=== PATIENT | male | born 1970 | race Hispanic/Latino ===

== ENCOUNTER 2019-07-17 11:59 | Emergency (ER) | payer SELFPAY ==
--- NOTE | 2019-07-17 13:38 | Anesthesia Consultation ---
Anesthesia Consult and Med Hx Date of service: 07/17/19 - Airway Anesthetic Teeth Evaluation: Poor, Chipped (severely decayed) ROM Head & Neck: Adequate Mental/Hyoid Distance: Adequate Mallampati Class: Class II Intubation Access Assessment: Good - Pulmonary Exam CTA: Yes - Cardiac Exam Cardiac Exam: RRR - Pre-Operative Health Status ASA Pre-Surgery Classification: ASA3 Proposed Anesthetic Plan: General (morbid obesity )
--- NOTE | 2019-07-17 13:38 | Anesthesia Day of Surgery ---
Anesthesia Day of Surgery - Day of Surgery Patient Examined: Yes Patient H&P Reviewed: Yes Patient is NPO: Yes
[2019-07-17] MEDS ORDERED: LACTATED RINGERS 1,000 ML ONE (13:53)
--- NOTE | 2019-07-17 16:21 | Emergency Department Report ---
ED Abdominal Pain HPI - General Chief Complaint: Back Pain/Injury Stated Complaint: KIDNEY STONE REMOVAL PER DOCTOR Time Seen by Provider: 07/17/19 15:32 Source: patient Mode of arrival: Ambulatory Limitations: No Limitations - History of Present Illness Initial Comments: This is a 48-year-old male nontoxic, well nourished in appearance, no acute signs of distress presents to the ED with c/o of flank pain x6 months. Patient was sent by Cecily Cook to go to the emergency department for a elective procedure of lithotripsy. Patient stated was diagnosed with a 6 mm kidney stone that is not obstructing and is supposed to have a elective procedure but insurance did not cover the surgery so he was sent to emergency room. Patient denies any nausea vomiting. Patient denies chest pain, short of breath, fever, chills, headache, stiff neck, numbness or tingling. Patient denies any diarrhea or constipation. Patient denies any recent travels. Patient stated allergies to codeine and sulfa but denies any drug allergies to morphine. Patient stated he is currently on ciprofloxacin that started 2 days ago for pneumonia. MD Complaint: flank pain -: month(s) Location: L flank Radiation: none Migration to: no migration Severity: mild Severity scale (0 -10): 8 Quality: aching Consistency: constant Improves With: nothing Worsens With: nothing Associated Symptoms: denies other symptoms. denies: nausea, vomiting, diarrhea, fever, chills, constipation, dysuria, hematemesis, hematochezia, melena, hematuria, anorexia, syncope - Related Data Previous Rx's Medication Instructions Recorded Last Taken Type Acetaminophen/Codeine [Tylenol 1 tab PO Q6H PRN #12 tab 07/17/19 Unknown Rx /Codeine # 3 tab] Allergies Allergy/AdvReac Type Severity Reaction Status Date / Time codeine Allergy Hives Verified 07/17/19 12:06 Sulfa (Sulfonamide Allergy Hives Verified 07/17/19 12:05 Antibiotics) ED Review of Systems ROS: Stated complaint: KIDNEY STONE REMOVAL PER DOCTOR Other details as noted in HPI Constitutional: denies: chills, fever Eyes: denies: eye pain, eye discharge, vision change ENT: denies: ear pain, throat pain Respiratory: denies: cough, shortness of breath, wheezing Cardiovascular: denies: chest pain, palpitations Endocrine: no symptoms reported Gastrointestinal: denies: abdominal pain, nausea, vomiting, diarrhea Genitourinary: denies: urgency, dysuria Musculoskeletal: denies: back pain, joint swelling, arthralgia Skin: denies: rash, lesions Neurological: denies: headache, weakness, paresthesias Psychiatric: denies: anxiety, depression Hematological/Lymphatic: denies: easy bleeding, easy bruising ED Past Medical Hx - Past Medical History Previous Medical History?: No - Surgical History Past Surgical History?: Yes Additional Surgical History: Back surgery. knee surgery - Medications Home Medications: Home Medications Medication Instructions Recorded Confirmed Last Taken Type Acetaminophen/Codeine [Tylenol 1 tab PO Q6H PRN #12 tab 07/17/19 Unknown Rx /Codeine # 3 tab] ED Physical Exam - General Limitations: No Limitations General appearance: alert, in no apparent distress - Head Head exam: Present: atraumatic, normocephalic - Neck Neck exam: Present: normal inspection, full ROM. Absent: tenderness, meningismus, lymphadenopathy - Respiratory Respiratory exam: Present: normal lung sounds bilaterally. Absent: respiratory distress, wheezes, rales, rhonchi, stridor, chest wall tenderness, accessory muscle use, decreased breath sounds, prolonged expiratory - Cardiovascular Cardiovascular Exam: Present: regular rate, normal rhythm, normal heart sounds. Absent: bradycardia, tachycardia, irregular rhythm, systolic murmur, diastolic murmur, rubs, gallop - GI/Abdominal GI/Abdominal exam: Present: soft, normal bowel sounds. Absent: distended, tenderness, guarding, rebound, diminished bowel sounds - Extremities Exam Extremities exam: Present: normal inspection, full ROM - Back Exam Back exam: Present: normal inspection, full ROM. Absent: tenderness, CVA tenderness (R), CVA tenderness (L), muscle spasm, paraspinal tenderness, vertebral tenderness, rash noted - Neurological Exam Neurological exam: Present: alert, oriented X3, normal gait - Psychiatric Psychiatric exam: Present: normal affect, normal mood - Skin Skin exam: Present: warm, dry, intact, normal color. Absent: rash ED Course Vital Signs 07/17/19 07/17/19 13:15 17:34 Temperature 98.4 F 98.2 F Pulse Rate 81 87 Respiratory 20 18 Rate Blood Pressure 151/93 Blood Pressure 147/69 [Left] O2 Sat by Pulse 97 99 Oximetry - Reevaluation(s) Reevaluation #1: 07/17/19 16:51 Patient is speaking in full sentences with no signs of distress noted. - Consultations Consultation #1: 07/17/19 16:53 Patient has been consulted with Jyotsna Millard about patient history, physical exam, and agrees to ED plan of care for labs and UA. If within normal patient can be discharged. Consultation #2: 07/17/19 16:54 Dr. Rueda was consulted and stated to discharge patient and he will perform the case in another hospital. ED Medical Decision Making - Lab Data Result diagrams: 07/17/19 16:52 07/17/19 16:52 - Medical Decision Making This is a 48-year-old male that presents with kidney stone that is nonobstructing and pneumonia. Patient stated he is currently taking ciprofloxacin for 2 days now for pneumonia that his doctor prescribed.. Patient is stable and was examined by me. Labs are unremarkable. UA obtained. CT of abdomen obtained and dictated by the radiologist. Patient is notified of the report with no questions noted by the patient. Vital signs are stable prior to discharge. Patient received medical treatment in the ED which patient stated symptoms has resovled and subsided. Was instructed note to operate any machiner y due to possible drowsiness and stated someone will drive the patient home. A by mouth challenge has been obtained and patient tolerated well with no nausea vomiting. Patient was also instructed to Follow-up with a urologist tomorrow as his urologist stated or if symptoms worsen and continue return to emergency room as soon as possible. At time of discharge, the patient does not seem toxic or ill in appearance. No acute signs of distress noted. Patient agrees to discharge treatment plan of care. No further questions noted by the patient. Critical care attestation.: If time is entered above; I have spent that time in minutes in the direct care of this critically ill patient, excluding procedure time. ED Disposition Clinical Impression: Kidney stone Disposition: DC-01 TO HOME OR SELFCARE Is pt being admited?: No Does the pt Need Aspirin: No Condition: Stable Instructions: Kidney Stones (ED), Acetaminophen/Codeine (By mouth) Additional Instructions: Follow-up with with your urologist tomorrow as he instructed or if symptoms worsen and continue return to emergency room as soon as possible. Do not operate any machinery while taking Tylenol with codeine as this may cause drowsiness. Prescriptions: Acetaminophen/Codeine [Tylenol /Codeine # 3 tab] 1 tab PO Q6H PRN #12 tab PRN Reason: Pain, Moderate (4-6) Referrals: PRIMARY CARE, [Primary Care Provider] - 3-5 Days CECILY RUEDA MD [Staff Physician] - 07/18/19 Forms: Work/School Release Form(ED)
[2019-07-17] MEDS ORDERED: MORPHINE 4 MG/1 ML INJ IV ONE (16:33)
[2019-07-17] MEDS ORDERED: MORPHINE 4 MG/1 ML INJ ONE (16:38)
[2019-07-17 17:11] LABS: Basophils % (Auto) 0.5 % (0.0-1.8); Eosinophils % (Auto) 0.8 % (0.0-4.3); Hematocrit 42.6 % (35.5-45.6); Hemoglobin 14.3 gm/dl (11.8-15.2); Lymphocytes # (Auto) 1.1 K/mm3 (1.2-5.4); Mean Corpuscular HGB Conc 34 % (32-34); Mean Corpuscular Volume 85 fl (84-94); Monocytes # (Auto) 0.5 K/mm3 (0.0-0.8); Monocytes % (Auto) 7.2 % (0.0-7.3); Platelet Count 204 K/mm3 (140-440); Red Cell Distribution Width 14.3 % (13.2-15.2)
[2019-07-17 17:12] LABS: Bilirubin,Urine NEG (Negative); Blood,Urine NEG (Negative); Color,Urine Yellow (Yellow); Mucus,Urine FEW /HPF; Protein,Urine <15 mg/dL mg/dL (Negative)
[2019-07-17 17:25] LABS: Alanine Aminotransferase 24 units/L (7-56); Albumin 3.7 g/dL (3.9-5); BUN/Creatinine Ratio 9; Blood Urea Nitrogen 7 mg/dL (9-20); Calcium 8.9 mg/dL (8.4-10.2); Hemolysis Index 12
[2019-07-17 18:15] VITALS: BP 151/93
[2019-07-17] MEDS ORDERED: HYDROmorphone 1 MG/1 ML INJ IV ONE (18:17)
[2019-07-17] MEDS ORDERED: HYDROmorphone 1 MG/1 ML INJ ONE (18:21)
--- NOTE | 2019-07-17 18:35 | Cat Scan Report ---
CT abdomen pelvis wo con INDICATION: MAIN: flank pain, patient going to the OR for kidney stone. TECHNIQUE: All CT scans at this location are performed using the following dose modulation technique: Automated exposure control. CONTRAST: None. COMPARISON: None available. CT ABDOMEN: Evaluation the lung bases demonstrates patchy infiltrate at the right middle lobe. The parenchymal organs are unremarkable in appearance. Negative for mass, fluid or inflammation. Ther e is no renal stone or obstruction. The gallbladder is mildly distended but demonstrates no adjacent inflammation. The bowel is not dilated or thickened. CT PELVIS: 7.5 cm calcification is inseparable from the distal left ureter which is not dilated. Nega tive for pelvic mass or fluid. IMPRESSION: 1. Right middle lobe pneumonia. 2. Suspect large nonobstructing stone distal left ureter. Signer Name: Godwin Antoine MD Signed: 07/17/2019 6:31 PM Workstation Name: [id number]
--- NOTE | 2019-07-18 03:17 | Consultation ---
HISTORY OF PRESENT ILLNESS: The patient is a gentleman we met last with a months of intermittent flank pain. He thought he passed the stone. He has a significant 6 mm stone in the ureter. He has been hurting on and off. It is now in the distal ureter. He had a little bit pneumonia. He is back in the Emergency Room with unremitting pain. We plan to take the stone out. We brought him in through the Emergency Room and then he went to preop. Then, he went back to the Emergency Room. There were some issues with [facility] in [facility]. I have been seeing the family at least 2-3 times. I saw them in preop. I just came from the Emergency Room and they are waiting to see an appeal with [employer] to say they have been denied treatment. The OR is ready. I have been ready since 1:00 to take care of the stone. He has been hurting for months. PAST MEDICAL HISTORY: He has his records, a history of kidney stone, previous pyelo, pneumonia, seizure, and bronchiolitis. ALLERGIES: CODEINE AND SULFA. FAMILY HISTORY: Noncontributory. REVIEW OF SYSTEMS: Pain. PHYSICAL EXAMINATION: GENERAL: On exam, he is having some pain. He is not vomiting at this point. ABDOMEN: Obese. Left flank pain. IMPRESSION: The patient needs the stone removed. I talked to him, his , and his mother, who is in a wheelchair, they have been back and forth from preop back to the Emergency Room and their cause is being made to Human. Otherwise, we may have to transfer him. JOB# [id number] BEA/CAROLANN
== END 2019-07-17 18:53 | disposition home or self-care (01) ==
LOC: ED 11:59
DX: N20.0 Calculus of kidney (principal)
CPT/HCPCS: 36415; 74176; 80053; 81001; 85025; 96374; 96375; 99284; J1170; J2270; J7120